=== PATIENT | female | born 1990 | race Caucasian/White ===

== ENCOUNTER 2022-10-28 07:59 | Outpatient (AMB) | payer OTHER, SELFPAY ==
--- NOTE | 2022-10-28 08:05 | MHC.OFFVIS ---
Intake Vital Signs 10/28/22 08:07 Height 5 ft 4 in Weight 121 lb BMI 20.8 BP 110/64 Blood Pressure Location Lt brachial Position Sitting Respiration 16 Pulse 70 Pulse Source Pulse Oximeter Temp 97.5 F Temp Source Skin Pulse Oximetry (%) 98 Oxygen Delivery Method Room Air Intake Visit Reasons: Aphthous Ulcer Allergies No Known Allergies Allergy (Verified 10/28/22 08:10) Medication List - Last Reconciled 10/28/22 by Sami Sanchez MD escitalopram oxalate 5 mg PO DAILY HPI HPI Comments History of Present Illness Details The patient presents for evaluation of recurrent aphthous ulcerations and gastritis. She reports the development of intermittent cramping abdominal pain, intermittent diarrhea, and intermittent constipation about 12 years ago. Recently workup has included colonoscopy and upper endoscopy. She has the reports on her telephone which she shares with me. The colonoscopy was negative. The upper was negative except for the finding of some gastritis. Biopsy of the mucosa did not show H pylori but did show evidence for some chronic gastritis. She was put on some sucralfate which has not helped her much. She had a an ultrasound of the liver that look normal. She had a HIDA scan that was interpreted as showing a hyperkinetic contraction of the gallbladder. There was no obstruction or retarded biliary function. For about 6 years she has been having pain in the neck and lower back regions. This has been treated with some physical therapy with only modest improvement. The back pain usually improves with most activities but on some days gets worse with activities. She has not tried any medication for that outside of occasional acetaminophen which was not helpful. She takes vitamin B12 and vitamin-D supplements suggested by a naturopathic provider. Mostly though she is bothered by recurrent oral ulcers. These are present just about every day in different parts of the mouth. She does not seem to have any on the lips. When they are active she has much discomfort with acidic type foods. She has noted occasional vaginal ulcers which have been treated as herpes type 1. She did have a treatment with some oral antiviral medications for that but it did not seem to help her oral lesions. She notes some abnormality on the surface of the tongue. [facility] Medical History (Updated 10/28/22 @ 09:07 by Sami Sanchez MD) Anxiety Aphthous ulcer Chronic gastritis Chronic low back pain GERD (gastroesophageal reflux disease) IBS (irritable bowel syndrome) Interstitial cystitis Surgical History (Updated 10/16/22 @ 15:49 by PREMA Kamara) No history of previous surgery Family History (Updated 10/16/22 @ 15:50 by PREMA Kamara) Father Anxiety disorder Maternal Grandmother Breast cancer Social History (Updated 10/16/22 @ 15:51 by PREMA Kamara) Alcohol intake: current Alcohol intake frequency: a few times a month Patient Tobacco Use Status: Tobacco use Unknown Review of Systems Const Details: Negative for appetite change, weight change, fever, chills, malaise and fatigue Eyes Details: Negative for vision change, dry eyes,headaches and dizziness ENT Details: Painful oral lesions, tongue surface abnormalities as noted above. Negative for hearing change, tinnitus, oral ulcer, nose bleeds and oral dryness. Card Details: Negative chest pain, edema and syncope Resp Details: Negative for SOB, cough and wheezing GI Details: Crampy abdominal pain, chronic constipation alternating with diarrhea. Gastritis seen on upper endoscopy with negative biopsy other than chronic gastritis. Negative indigestion/heartburn, nausea, bowel changes, and bloody stool. Details: Occasional dysuria and increased urinary frequency. She thinks she has interstitial cystitis. Symptoms are not always associated with UTI. Negative for , hematuria, nocturia, decreased force/flow and genital discharge Skin/Breast Details: Some acne on the back, previously had on her face when she was younger. Negative for itching, hives, Raynaud's symptoms, sun sensitivity, and skin cancer Neuro Details: Negative for epilepsy, palsy, stroke, changes in speech, tingling and weakness Psych Details: Some on some low-dose Lexapro for anxiety. She is going to be transitioning to Prozac soon. Endo Details: Negative for polyuria and polydypsia Rafi/Lymph Details: Negative for excessive bruising or bleeding. Physical Exam Vital Signs: Last Vital Signs Temp 97.5 F 10/28/22 08:07 Pulse 70 10/28/22 08:07 Resp 16 10/28/22 08:07 BP 110/64 10/28/22 08:07 Pulse Ox 98 10/28/22 08:07 Oxygen Delivery Method Room Air 10/28/22 08:07 BMI result Body Mass Index 20.8 APPEARANCE: Patient in no acute distress EYES no redness, pupils equal and reactive to light, eyelids normal EARS: External ear normal, canal clear and tympanic membrane normal. NOSE/SINUS: Airflow through both nares, no nasal discharge, no bleeding THROAT: Oral mucosa moist. The tongue has deep for those consistent with geographic tongue. There are small papules over the buccal mucosa. A few of these look like small in her early canker sores. NECK: No thyromegaly or masses, no adenopathy, trachea midline. HEART: Regulrar rhythm, S1-S2 heard, no murmurs, rubs or gallops. LUNG: Clear to percussion and auscultation ABD: Normal bowel sounds, no organomegaly, masses or tenderness. EXTREMITIES: No edema, no calf tenderness, normal peripheral pulses. NEURO: Oriented and alert x3. No focal weakness. Reflexes symmetric. Gait normal. SKIN: Closed comedones on the back consistent with acne. No Raynaud's symptoms or signs. JOINT EXAM:.?? Cervical Spine:.? Full range of motion without pain; no tenderness. Thoracic Spine:.? No scoliosis.? No tenderness on palpation. Lumbar Spine:.? Alignment normal.? Full range of motion without pain, no tenderness. Chest Wall:.? No tenderness, swelling, increased warmth or erythema. Hands:.? Normal pain-free range of motion without tenderness, swelling, increased warmth or erythema. 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 Wrists:.? Normal pain-free range of motion without tenderness, swelling, increased warmth or erythema. Elbows:. Normal pain-free range of motion without tenderness, swelling, increased warmth or erythema. Shoulders:.?? Full range of motion without pain. No tenderness, weakness, swelling, increased warmth or erythema. Hips:.? Full range of motion without pain. Hip bursa:.? No tenderness. Knees:.?? Normal pain-free range of motion without tenderness, swelling, increased warmth or erythema.? There is no effusion or crepitation Ankles:.? Normal pain-free range of motion without tenderness, swelling, increased warmth or erythema. Feet:.? Normal pain-free range of motion without tenderness, swelling, increased warmth or erythema. Tender points:.? No tenderness to digital palpation at the occiput, trapezius, second rib, lateral epicondyle, knees, greater trochanter and gluteal area bilaterally. ? 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 Most of these look consistent with aphthous stomatitis. She has had a few vaginal lesions but these were labeled as being due to herpes simplex. None the less Behcet's disease remains in the differential. Her GI symptoms sound relatively non-specific, actually they suggest irritable bowel syndrome. The presence of gastritis on the stomach mucosa biopsy is also non-specific. She does not seem to have any signs or symptoms to indicate SLE, another cause for oral ulcers. We will check some inflammatory markers, recheck chemistry and CBC, and urine protein. We may consider attempt at pathergy testing and /or biopsy of this or lesions. Review of the patient data, today's history, today's exam took 48 minutes. Orders: Orders Vitamin B12 Today K12.0 - Recurrent oral aphthae, K29.50 - Unspecified chronic gastritis without bleeding Comprehensive Met. Panel Today K12.0 - Recurrent oral aphthae, K29.50 - Unspecified chronic gastritis without bleeding C Reactive Protein Today K12.0 - Recurrent oral aphthae, K29.50 - Unspecified chronic gastritis without bleeding Protein Creatinine Ratio, Ur Today K12.0 - Recurrent oral aphthae, K29.50 - Unspecified chronic gastritis without bleeding Complete Blood Count Auto Diff Today K12.0 - Recurrent oral aphthae, K29.50 - Unspecified chronic gastritis without bleeding HOLDEN Reflex Titer and Pattern Today K12.0 - Recurrent oral aphthae, K29.50 - Unspecified chronic gastritis without bleeding Coding Level of Care Code New Pt Level 4 (20162) Diagnoses Chronic gastritis K29.50 Recurrent aphthous ulcer K12.0
[2022-10-28 08:07] VITALS: BP 110/64; PULSE 70; RESP 16; TEMP 36.4; O2SAT 98; BMI 20.8
== END 2022-10-28 09:28 | disposition home or self-care (01) ==
PROVIDERS: PCP Nurse Practitioner Family; Referring Provider Nurse Practitioner Family; Visit Provider Internal Medicine Rheumatology
DX: K29.50 Unspecified chronic gastritis without bleeding (principal); K12.0 Recurrent oral aphthae
CPT/HCPCS: 99204

== ENCOUNTER → 2022-10-28 07:59 | Outpatient (BNVA) | payer OTHER, SELFPAY | PROVIDERS: PCP Nurse Practitioner Family; Referring Provider Nurse Practitioner Family; Visit Provider Internal Medicine Rheumatology ==

== ENCOUNTER 2022-10-28 09:14 | Outpatient (REF) | payer OTHER, SELFPAY ==
[2022-10-28 10:31] LABS: MANUAL DIFF FLAG NO
[2022-10-28 10:49] LABS: Basophils Percent Auto 0.4 % (0-2); Eosinophils Absolute Auto 0.2 X10*3/uL (0.0-0.4); Eosinophils Percent Auto 3.5 % (0-4); Hematocrit 41.3 % (37.0-47.0); Hemoglobin 13.5 g/dl (12.0-16.0); Imm Gran Abs Auto 0.01 X10*3/uL (0.00-0.03); Imm Gran Pct Auto 0.2 % (0.0-0.4); Lymphocytes Absolute Auto 1.9 X10*3/uL (1.2-4.9); Lymphocytes Percent Auto 36.9 % (20-40); Mean Corpuscular HGB Conc 32.7 g/dl (31.0-35.0); Mean Corpuscular Hemoglobin 30.3 pg (27.0-33.0); Mean Corpuscular Volume 92.6 fL (80.0-98.0); Mean Platelet Volume 10.5 fL (9.4-12.3); Monocytes Absolute Auto 0.4 X10*3/uL (0.1-1.2); Monocytes Percent Auto 8.1 % (2-11); Neutrophils Absolute Auto 2.6 x10*3/uL (2.0-8.3); Neutrophils Percent Auto 50.9 % (45-73); Platelet Count 253 X10*3/uL (160-400); Red Blood Count 4.46 X10*6/uL (4.20-5.50); Red Cell Distribution Width 12.9 % (11.0-16.0); White Blood Count 5.1 X10*3/uL (4.8-10.8)
[2022-10-28 11:10] LABS: Alanine Aminotransferase 14 U/L (0-31); Albumin Level 4.4 g/dL (3.5-5.0); Alkaline Phosphatase 38 U/L (39-117); Anion Gap 8 (12-20); Aspartate Amino Transferase 18 U/L (5-31); Bilirubin Total 0.7 mg/dL (0.0-1.0); Blood Urea Nitrogen 7 mg/dL (9-16); C Reactive Protein < 0.10 mg/dL (< or = 0.50); Calcium 9.4 mg/dL (8.4-10.2); Carbon Dioxide 28 mmol/L (22-29); Chloride 107 mmol/L (96-108); Estimated Glomerular Filt Rate > 60; Glucose Random 80 mg/dL (60-115); Potassium 4.4 mmol/L (3.3-5.1); Sodium 139 mmol/L (135-145); Total Protein 7.5 g/dL (6.5-8.0)
[2022-10-28 11:29] LABS: Vitamin B12 710 pg/mL (200-900)
[2022-10-28 11:41] LABS: Creatinine Urine 167.18 mg/dL; Total Protein Urine Random < 7 mg/dL (<12)
[2022-11-03 14:14] LABS: Anti Nuclear Antibody Screen POSITIVE (NEGATIVE)
== END 2022-10-28 09:15 | disposition home or self-care (01) ==
LOC: HO.10HDL 09:14
PROVIDERS: Visit Provider Internal Medicine Rheumatology
DX: K29.50 Unspecified chronic gastritis without bleeding (principal); K12.0 Recurrent oral aphthae
CPT/HCPCS: 36415; 80053; 82607; 84156; 85025; 86038; 86039; 86140; 99202

== ENCOUNTER 2022-11-14 13:10 | Outpatient (REF) | payer OTHER, SELFPAY ==
[2022-11-17 16:59] LABS: Complement C3 100 mg/dL (83-193)
[2022-11-18 17:33] LABS: Anti DNA DS Antibody <1 IU/mL; Antibody to SS-A Antigen <1.0 NEG AI (<1.0 NEG); Antibody to SS-B Antigen <1.0 NEG AI (<1.0 NEG); SM/Ribonucleoprotein Ab <1.0 NEG AI (<1.0 NEG); Smith Protein <1.0 NEG AI (<1.0 NEG)
== END 2022-11-14 13:11 | disposition home or self-care (01) ==
LOC: HO.LAB 13:10
PROVIDERS: PCP Nurse Practitioner Family; Visit Provider Internal Medicine Rheumatology
DX: R76.8 Other specified abnormal immunological findings in serum (principal); K12.0 Recurrent oral aphthae
CPT/HCPCS: 36415; 86160; 86225; 86235